=== PATIENT | male | born 1930 | race Caucasian/White ===

== ENCOUNTER 2016-01-17 09:19 | Outpatient (RCR) | payer MEDICARE, OTHER ==
[~2016-01-17 09:19] MED LIST: ADVAIR DISKUS1 DSK IH; COMBIVENT INH14.7 GM IH; COMBIVENT RESPI1 SPR IH; DAILY MULTI VIT1 TAB PO; FEOSOL325 MG PO; FINASTERIDE5 M1 PO; FINASTERIDE5 MG PO; GOOD SENSE ASP325 M1 PO; IRON65 MG PO; MIRALAX PA17 GM/Dose PO; MUCINEX DM 30 M1 TE1 PO; NITROTAB0.4 MG SL; SPIRIVA INH IH; TERAZOSIN HCL2 M1 PO; TERAZOSIN HCL2 M3 PO
[2016-01-17 09:38] VITALS: BP 141/69
[2016-01-17 11:17] VITALS: BP 140/69
[2016-01-19 09:18] VITALS: BP 156/69
[2016-01-19] MEDS ORDERED: PROTONIX 40MG T40 MG PO (09:37)
[2016-01-19 10:40] VITALS: BP 153/63
[2016-01-22 09:42] VITALS: BP 137/57
--- NOTE | 2016-01-22 09:47 | NUR ---
discussed the possibility of pateint leaving this INT in place due to his return monday 01/22 for next infusion, he states he would be interested in doing this, also discussed if he felt necessary to remove it at home to apply direct pressure to the site until the bleeding stopped, plan to secure site with coban prior to dismissal.
[2016-01-22 10:56] VITALS: BP 141/70
--- NOTE | 2016-01-22 10:58 | NUR ---
eugenio decides to maintain INT until Sunday with full knowledge it may still need to be restarted at that time, line is wrapped with Coban and he states it is comfortable, patient refused supplemental oxygen during say here
[2016-01-24 09:25] VITALS: BP 140/78
[2016-01-24 10:55] VITALS: BP 132/62
[2016-01-27 09:45] VITALS: BP 124/51
[2016-01-27 10:55] VITALS: BP 128/28
== END 2016-04-16 | disposition home or self-care (01) ==
LOC: AMSURD
DX: K55.20 Angiodysplasia of colon without hemorrhage (principal); D50.9 Iron deficiency anemia, unspecified
CPT/HCPCS: J1756

== ENCOUNTER → 2016-04-10 | Outpatient (CLI) | payer MEDICARE, OTHER ==
[~2016-04-10] MED LIST changes: +PROTONIX 40MG T40 MG PO
== END ==
LOC: LAB 10:42
DX: K55.21 Angiodysplasia of colon with hemorrhage (principal); J44.9 Chronic obstructive pulmonary disease, unspecified

== ENCOUNTER → 2016-05-02 | Outpatient (CLI) | payer MEDICARE, OTHER | LOC: LAB 08:51 | DX: K55.21 Angiodysplasia of colon with hemorrhage (principal); J44.9 Chronic obstructive pulmonary disease, unspecified ==

== ENCOUNTER 2016-05-05 09:30 | Outpatient (RCR) | payer MEDICARE, OTHER ==
[2016-05-05 10:20] VITALS: BP 129/64
[2016-05-05 10:47] VITALS: BP 141/72
[2016-05-12 09:27] VITALS: BP 148/72
[2016-05-12 09:34] VITALS: BP 148/72
[2016-05-12 10:22] VITALS: BP 133/58
[2016-05-19 09:59] VITALS: BP 131/65
[2016-05-19 10:30] VITALS: BP 135/69
[2016-05-26 09:27] VITALS: BP 121/49
[2016-05-26 10:35] VITALS: BP 129/54
== END 2016-08-03 | disposition home or self-care (01) ==
LOC: AMSURD
DX: K55.20 Angiodysplasia of colon without hemorrhage (principal); D50.9 Iron deficiency anemia, unspecified
CPT/HCPCS: J1756

== ENCOUNTER → 2016-06-20 | Outpatient (CLI) | payer MEDICARE, OTHER ==
[2016-05-26 10:35] VITALS: BP 129/54
== END ==
LOC: LAB 08:16
DX: K55.21 Angiodysplasia of colon with hemorrhage (principal); J44.9 Chronic obstructive pulmonary disease, unspecified

== ENCOUNTER → 2017-02-06 | Outpatient (CLI) | payer MEDICARE, OTHER ==
[2017-02-06 15:56] LABS: HEMATOCRIT 35.1 % (42.0-52.0); HEMOGLOBIN 10.6 g/dL (13.5-18.0); MEAN CELL VOLUME 90 fl (78-100); MEAN CORPUSCULAR HEMOGLOBIN 27 pg (27-31); MEAN CORPUSCULAR HGB CONC 30 g/dL (33-37); MEAN PLATELET VOLUME 10.3 fl (7.4-10.4); PLATELET COUNT 261 K/mm3 (130-400); RED BLOOD COUNT 3.91 M/mm3 (4.20-5.60); RED CELL DISTRIBUTION WIDTH 13.3 % (11.5-14.5); WHITE BLOOD COUNT 10.1 K/mm3 (4.8-10.8)
[2017-02-06 16:04] LABS: ALBUMIN 3.9 g/dL (3.5-5.0); BUN/CREATININE RATIO 33.2 (6.0-26.0); CALCIUM 9.7 mg/dL (8.4-10.2); POTASSIUM 4.2 mmol/L (3.6-5.0); TOTAL BILIRUBIN 0.5 mg/dL (0.2-1.3); TOTAL PROTEIN 7.3 g/dL (6.3-8.2)
[2017-02-06 16:48] LABS: LYMPHOCYTE 2 % (20-51); MONOCYTE 7 % (3-10); NEUTROPHILS 89 % (42-75)
== END ==
LOC: RAD 15:15
PROVIDERS: Family Medicine
DX: D50.0 Iron deficiency anemia secondary to blood loss (chronic) (principal); K21.0 Gastro-esophageal reflux disease with esophagitis

== ENCOUNTER → 2017-06-05 | Outpatient (CLI) | payer MEDICARE, OTHER ==
[2017-06-05 07:54] LABS: MEAN PLATELET VOLUME 10.5 fl (7.4-10.4); RED BLOOD COUNT 2.57 M/mm3 (4.20-5.60); RED CELL DISTRIBUTION WIDTH 18.3 % (11.5-14.5)
[2017-06-05 07:55] LABS: ALBUMIN 2.8 g/dL (3.5-5.0); BUN/CREATININE RATIO 18.7 (6.0-26.0); CALCIUM 8.3 mg/dL (8.4-10.2); HEMATOCRIT 17.8 % (42.0-52.0); HEMOGLOBIN 4.4 g/dL (13.5-18.0); POTASSIUM 4.2 mmol/L (3.6-5.0); TOTAL BILIRUBIN 0.3 mg/dL (0.2-1.3); TOTAL PROTEIN 5.7 g/dL (6.3-8.2); TROPONIN-I < 0.03 ng/mL (0.00-0.06)
[2017-06-05 08:18] LABS: URINE APPEARANCE CLEAR; URINE BILIRUBIN NEGATIVE (NEGATIVE); URINE BLOOD 50 ery/uL (NEGATIVE); URINE COLOR YELLOW; URINE GLUCOSE NEGATIVE (NEGATIVE); URINE KETONE NEGATIVE (NEGATIVE); URINE LEUKOCYTE ESTERASE NEGATIVE (NEGATIVE); URINE NITRATE NEGATIVE (NEGATIVE); URINE PROTEIN(semi-quant) NEGATIVE (NEGATIVE); URINE UROBILINOGEN NORMAL (NORMAL); URINE WBC 0-1 /hpf (0-3)
== END ==
LOC: LAB 06:45
PROVIDERS: Family Medicine
DX: D50.9 Iron deficiency anemia, unspecified (principal); J44.9 Chronic obstructive pulmonary disease, unspecified; R06.02 Shortness of breath; R06.2 Wheezing

== ENCOUNTER → 2017-06-05 | Outpatient (CLI) | payer MEDICARE, OTHER ==
[2017-06-05] VITALS (11 sets, daily range): BP systolic 126–154; BP diastolic 61–89
[~2017-06-05] VITALS: Ht 175.3 cm; Wt 75.0 kg
== END ==
LOC: AMSURD 10:23
DX: D50.9 Iron deficiency anemia, unspecified (principal); K55.20 Angiodysplasia of colon without hemorrhage
CPT/HCPCS: J1940; J7050

== ENCOUNTER → 2017-06-06 | Outpatient (CLI) | payer MEDICARE, OTHER ==
[2017-06-06] VITALS (7 sets, daily range): BP systolic 118–147; BP diastolic 49–76
[~2017-06-06] VITALS: Ht 175.3 cm; Wt 75.0 kg
== END ==
LOC: AMSURD 10:35
DX: D50.9 Iron deficiency anemia, unspecified (principal); K55.20 Angiodysplasia of colon without hemorrhage
CPT/HCPCS: J1940; J7050

== ENCOUNTER → 2017-06-06 | Outpatient (CLI) | payer MEDICARE, OTHER ==
[2017-06-05 15:08] VITALS: BP 148/65
[2017-06-06 07:34] LABS: BUN/CREATININE RATIO 17.7 (6.0-26.0); CALCIUM 8.3 mg/dL (8.4-10.2); HEMATOCRIT 25.1 % (42.0-52.0); HEMOGLOBIN 6.9 g/dL (13.5-18.0); MEAN PLATELET VOLUME 9.9 fl (7.4-10.4); POTASSIUM 4.3 mmol/L (3.6-5.0); RED BLOOD COUNT 3.49 M/mm3 (4.20-5.60); WHITE BLOOD COUNT 4.8 K/mm3 (4.8-10.8)
== END ==
LOC: LAB 06:20
PROVIDERS: Family Medicine
DX: K55.20 Angiodysplasia of colon without hemorrhage (principal); D50.9 Iron deficiency anemia, unspecified

== ENCOUNTER → 2017-06-07 | Outpatient (CLI) | payer MEDICARE, OTHER ==
[2017-06-06 15:05] VITALS: BP 147/76
[2017-06-07 06:08] LABS: HEMATOCRIT 31.6 % (42.0-52.0); HEMOGLOBIN 9.2 g/dL (13.5-18.0); MEAN PLATELET VOLUME 9.8 fl (7.4-10.4); RED BLOOD COUNT 4.21 M/mm3 (4.20-5.60); RED CELL DISTRIBUTION WIDTH 21.2 % (11.5-14.5); WHITE BLOOD COUNT 4.6 K/mm3 (4.8-10.8)
[2017-06-07 06:15] LABS: BUN/CREATININE RATIO 17.6 (6.0-26.0); CALCIUM 8.4 mg/dL (8.4-10.2); POTASSIUM 4.2 mmol/L (3.6-5.0)
== END ==
LOC: LAB 05:38
PROVIDERS: Family Medicine
DX: D50.9 Iron deficiency anemia, unspecified (principal); K55.20 Angiodysplasia of colon without hemorrhage

== ENCOUNTER 2017-06-12 14:07 | Outpatient (RCR) | payer MEDICARE, OTHER ==
[~2017-06-12] VITALS: Ht 175.3 cm; Wt 77.3 kg
[~2017-06-12 14:07] MED LIST changes: -AFRIN 20 ML20 M2 NS; -FLOVENT HFA12 G1 IH; -IPRATROPIUM BROM3 M1 IH; -MIRALAX17 GM PO; -MUCINEX 60600 MG/TA1 PO
[2017-06-12 14:40] VITALS: BP 147/66
--- NOTE | 2017-06-12 15:10 | NUR ---
[facility] reports that pt received benadryl 25mg prior to his arrival at the hospital.
[2017-06-12] MEDS ORDERED: AFRIN 20 ML20 M2 NS (15:12)
[2017-06-12] MEDS ORDERED: COMBIVENT RESPI1 SPR IH (15:13)
[2017-06-12] MEDS ORDERED: IPRATROPIUM BROM3 M1 IH (15:13)
[2017-06-12] MEDS ORDERED: FLOVENT HFA12 G1 IH (15:14)
[2017-06-12] MEDS ORDERED: MIRALAX17 GM PO (15:15)
[2017-06-12] MEDS ORDERED: MUCINEX 60600 MG/TA1 PO (15:18)
[2017-06-12 16:15] VITALS: BP 142/67
--- NOTE | 2017-06-12 16:25 | NUR ---
Ryan Baker notified of new order for Nulecit 250mg q 2 weeks (with labs done morning of scheduled infusion). Order faxed to Ryan Baker and paper copy sent w/ pt as well.
[2017-06-26 14:33] VITALS: BP 116/60
[2017-06-26 15:45] VITALS: BP 136/61
[2017-07-10 14:00] VITALS: BP 136/69
[2017-07-10 15:28] VITALS: BP 147/75
[2017-07-10] MEDS ORDERED: COMBIVENT RESPI1 SPR IH (19:04)
[2017-07-24 14:34] VITALS: BP 120/54
[2017-07-24 15:53] VITALS: BP 134/64
--- NOTE | 2017-07-24 15:55 | NUR ---
patient used facility oxygen at 2l/nc while he was here
[2017-08-08 14:15] VITALS: BP 144/70
[2017-08-08 15:45] VITALS: BP 126/70
[2017-08-22 14:12] VITALS: BP 140/46
[2017-08-22 14:55] VITALS: BP 148/61
[2017-09-05 14:47] VITALS: BP 117/60
[2017-09-05 16:11] VITALS: BP 115/56
== END 2017-09-10 | disposition home or self-care (01) ==
LOC: AMSURD → EDSTATUS 15:57 → AMSURD 08-07 13:51
DX: D50.9 Iron deficiency anemia, unspecified (principal); K55.20 Angiodysplasia of colon without hemorrhage
CPT/HCPCS: J2916; J7050

== ENCOUNTER → 2017-06-12 | Outpatient (CLI) | payer MEDICARE, OTHER ==
[2017-06-06 15:05] VITALS: BP 147/76
[~2017-06-12] MED LIST changes: +AFRIN 20 ML20 M2 NS; +FLOVENT HFA12 G1 IH; +IPRATROPIUM BROM3 M1 IH; +MIRALAX17 GM PO; +MUCINEX 60600 MG/TA1 PO
[2017-06-12 07:12] LABS: HEMATOCRIT 35.9 % (42.0-52.0); MEAN PLATELET VOLUME 11.2 fl (7.4-10.4); RED BLOOD COUNT 4.51 M/mm3 (4.20-5.60); WHITE BLOOD COUNT 5.3 K/mm3 (4.8-10.8)
[2017-06-12 07:22] LABS: RED CELL DISTRIBUTION WIDTH 25.9 % (11.5-14.5)
== END ==
LOC: LAB 06:20
PROVIDERS: Family Medicine
DX: D50.9 Iron deficiency anemia, unspecified (principal)

== ENCOUNTER → 2017-06-26 | Outpatient (CLI) | payer MEDICARE, OTHER ==
[2017-06-12 16:15] VITALS: BP 142/67
[~2017-06-26] MED LIST changes: +AFRIN 20 ML20 M2 NS; +FLOVENT HFA12 G1 IH; +IPRATROPIUM BROM3 M1 IH; +MIRALAX17 GM PO; +MUCINEX 60600 MG/TA1 PO
== END ==
LOC: LAB 13:53
DX: D50.9 Iron deficiency anemia, unspecified (principal)

== ENCOUNTER → 2017-06-26 | Outpatient (CLI) | payer MEDICARE, OTHER ==
[2017-06-12 16:15] VITALS: BP 142/67
[2017-06-26 07:28] LABS: HEMATOCRIT 34.5 % (42.0-52.0); HEMOGLOBIN 9.8 g/dL (13.5-18.0); MEAN PLATELET VOLUME 10.8 fl (7.4-10.4); RED BLOOD COUNT 4.19 M/mm3 (4.20-5.60); WHITE BLOOD COUNT 5.2 K/mm3 (4.8-10.8)
[2017-06-26 07:31] LABS: RED CELL DISTRIBUTION WIDTH 26.1 % (11.5-14.5)
== END ==
LOC: LAB 06:20
PROVIDERS: Family Medicine
DX: D50.9 Iron deficiency anemia, unspecified (principal)

== ENCOUNTER → 2017-07-10 | Outpatient (CLI) | payer MEDICARE, OTHER ==
[2017-06-26 15:45] VITALS: BP 136/61
[2017-07-10 15:54] LABS: HEMOGLOBIN 10.2 g/dL (13.5-18.0); RED BLOOD COUNT 4.03 M/mm3 (4.20-5.60); WHITE BLOOD COUNT 7.2 K/mm3 (4.8-10.8)
== END ==
LOC: LAB 14:40
PROVIDERS: Family Medicine
DX: D50.9 Iron deficiency anemia, unspecified (principal); K55.20 Angiodysplasia of colon without hemorrhage; Z88.8 Allergy status to other drugs, medicaments and biological substances

== ENCOUNTER → 2017-07-24 | Outpatient (CLI) | payer MEDICARE, OTHER ==
[2017-07-10 15:28] VITALS: BP 147/75
[2017-07-24 14:21] LABS: HEMATOCRIT 33.6 % (42.0-52.0); HEMOGLOBIN 10.1 g/dL (13.5-18.0); MEAN PLATELET VOLUME 9.9 fl (7.4-10.4); RED BLOOD COUNT 3.84 M/mm3 (4.20-5.60); RED CELL DISTRIBUTION WIDTH 21.1 % (11.5-14.5); WHITE BLOOD COUNT 7.3 K/mm3 (4.8-10.8)
--- NOTE | 2017-07-24 14:44 | NUR ---
labs drawn at time of IV start, specs to lab with results to go to Dr. Pool
== END ==
LOC: LAB 13:27
PROVIDERS: Family Medicine
DX: D50.9 Iron deficiency anemia, unspecified (principal); K55.20 Angiodysplasia of colon without hemorrhage

== ENCOUNTER → 2017-08-08 | Outpatient (CLI) | payer MEDICARE, OTHER ==
[2017-07-24 15:53] VITALS: BP 134/64
[2017-08-08 14:51] LABS: HEMATOCRIT 35.3 % (42.0-52.0); MEAN PLATELET VOLUME 10.1 fl (7.4-10.4); RED BLOOD COUNT 3.94 M/mm3 (4.20-5.60); RED CELL DISTRIBUTION WIDTH 16.6 % (11.5-14.5); WHITE BLOOD COUNT 6.7 K/mm3 (4.8-10.8)
== END ==
LOC: LAB 14:36
PROVIDERS: Family Medicine
DX: D64.9 Anemia, unspecified (principal)

== ENCOUNTER → 2017-08-22 | Outpatient (CLI) | payer MEDICARE, OTHER ==
[2017-08-08 15:45] VITALS: BP 126/70
[2017-08-22 13:56] LABS: HEMATOCRIT 38.3 % (42.0-52.0); HEMOGLOBIN 12.2 g/dL (13.5-18.0); RED BLOOD COUNT 4.29 M/mm3 (4.20-5.60); RED CELL DISTRIBUTION WIDTH 14.9 % (11.5-14.5); WHITE BLOOD COUNT 7.1 K/mm3 (4.8-10.8)
== END ==
LOC: LAB 13:30
PROVIDERS: Family Medicine
DX: D50.9 Iron deficiency anemia, unspecified (principal); K55.20 Angiodysplasia of colon without hemorrhage

== ENCOUNTER → 2017-09-05 | Outpatient (CLI) | payer MEDICARE, OTHER ==
[2017-08-22 14:55] VITALS: BP 148/61
[2017-09-05 15:16] LABS: HEMATOCRIT 38.1 % (42.0-52.0); HEMOGLOBIN 11.9 g/dL (13.5-18.0); MEAN PLATELET VOLUME 10.3 fl (7.4-10.4); RED BLOOD COUNT 4.18 M/mm3 (4.20-5.60); RED CELL DISTRIBUTION WIDTH 14.2 % (11.5-14.5); WHITE BLOOD COUNT 7.1 K/mm3 (4.8-10.8)
== END ==
LOC: LAB 14:48
PROVIDERS: Family Medicine
DX: D50.9 Iron deficiency anemia, unspecified (principal); D12.6 Benign neoplasm of colon, unspecified

== ENCOUNTER 2017-09-19 12:49 | Outpatient (RCR) | payer MEDICARE, OTHER ==
[~2017-09-19] VITALS: Ht 175.3 cm; Wt 77.3 kg
[2017-09-19 14:04] VITALS: BP 15/63
[2017-09-19 14:22] VITALS: BP 142/64
[2017-10-09 14:18] VITALS: BP 171/76
[2017-10-09 16:11] VITALS: BP 123/69
[2017-10-23 14:36] VITALS: BP 150/68
[2017-10-23 15:54] VITALS: BP 132/64
[2017-11-07 15:54] VITALS: BP 136/65; BP 156/68
[2017-11-28 14:15] VITALS: BP 133/63
[2017-11-28 15:57] VITALS: BP 138/70
[2017-12-19] MEDS ORDERED: BENADRYL PO (18:32)
[2017-12-19] MEDS ORDERED: ANORO ELLIPTA1 POW IH (18:33)
[2017-12-19] MEDS ORDERED: PROMETH-CODEIN 65 ML PO (18:34)
== END 2017-12-18 | disposition home or self-care (01) ==
LOC: AMSURD
DX: D50.9 Iron deficiency anemia, unspecified (principal); K55.20 Angiodysplasia of colon without hemorrhage
CPT/HCPCS: J2916; J7050

== ENCOUNTER → 2017-09-19 | Outpatient (CLI) | payer MEDICARE, OTHER ==
[2017-09-05 16:11] VITALS: BP 115/56
[2017-09-19 14:15] LABS: HEMATOCRIT 39.3 % (42.0-52.0); HEMOGLOBIN 12.5 g/dL (13.5-18.0); MEAN PLATELET VOLUME 11.3 fl (7.4-10.4); RED BLOOD COUNT 4.29 M/mm3 (4.20-5.60); RED CELL DISTRIBUTION WIDTH 13.5 % (11.5-14.5); WHITE BLOOD COUNT 6.8 K/mm3 (4.8-10.8)
== END ==
LOC: LAB 12:51
PROVIDERS: Family Medicine
DX: D50.8 Other iron deficiency anemias (principal); D64.9 Anemia, unspecified; K55.20 Angiodysplasia of colon without hemorrhage

== ENCOUNTER → 2017-10-09 | Outpatient (CLI) | payer MEDICARE, OTHER ==
[2017-09-19 14:22] VITALS: BP 142/64
[2017-10-09 14:21] LABS: HEMATOCRIT 40.4 % (42.0-52.0); HEMOGLOBIN 12.7 g/dL (13.5-18.0); MEAN CELL VOLUME 93 fl (78-100); MEAN CORPUSCULAR HEMOGLOBIN 29 pg (27-31); MEAN CORPUSCULAR HGB CONC 31 g/dL (33-37); MEAN PLATELET VOLUME 10.7 fl (7.4-10.4); PLATELET COUNT 206 K/mm3 (130-400); RED BLOOD COUNT 4.35 M/mm3 (4.20-5.60); RED CELL DISTRIBUTION WIDTH 13.4 % (11.5-14.5); WHITE BLOOD COUNT 7.8 K/mm3 (4.8-10.8)
[2017-10-09 14:25] LABS: ALBUMIN 3.8 g/dL (3.5-5.0); BUN/CREATININE RATIO 29.5 (6.0-26.0); POTASSIUM 4.7 mmol/L (3.6-5.0); TOTAL BILIRUBIN 0.4 mg/dL (0.2-1.3); TOTAL PROTEIN 7.4 g/dL (6.3-8.2)
[2017-10-09 14:32] LABS: TROPONIN-I < 0.03 ng/mL (0.00-0.06)
[2017-10-09 14:35] LABS: LYMPHOCYTE 9 % (20-51); MONOCYTE 5 % (3-10); NEUTROPHILS 84 % (42-75)
== END ==
LOC: RAD 13:23
PROVIDERS: Family Medicine
DX: J43.8 Other emphysema (principal); R91.8 Other nonspecific abnormal finding of lung field

== ENCOUNTER → 2017-10-23 | Outpatient (CLI) | payer MEDICARE, OTHER ==
[2017-10-23 14:36] VITALS: BP 150/68
[2017-10-23 15:55] LABS: HEMATOCRIT 38.8 % (42.0-52.0); HEMOGLOBIN 12.3 g/dL (13.5-18.0); MEAN PLATELET VOLUME 11.2 fl (7.4-10.4); RED BLOOD COUNT 4.14 M/mm3 (4.20-5.60); RED CELL DISTRIBUTION WIDTH 13.6 % (11.5-14.5); WHITE BLOOD COUNT 7.2 K/mm3 (4.8-10.8)
== END ==
LOC: LAB 14:41
PROVIDERS: Family Medicine
DX: D50.9 Iron deficiency anemia, unspecified (principal); K55.20 Angiodysplasia of colon without hemorrhage

== ENCOUNTER → 2017-11-07 | Outpatient (CLI) | payer MEDICARE, OTHER ==
[2017-10-23 15:54] VITALS: BP 132/64
[2017-11-07 14:46] LABS: HEMOGLOBIN 12.6 g/dL (13.5-18.0); MEAN CELL VOLUME 95 fl (78-100); MEAN CORPUSCULAR HEMOGLOBIN 30 pg (27-31); MEAN CORPUSCULAR HGB CONC 32 g/dL (33-37); MEAN PLATELET VOLUME 10.6 fl (7.4-10.4); PLATELET COUNT 215 K/mm3 (130-400); RED BLOOD COUNT 4.23 M/mm3 (4.20-5.60); RED CELL DISTRIBUTION WIDTH 13.7 % (11.5-14.5); WHITE BLOOD COUNT 7.6 K/mm3 (4.8-10.8)
[2017-11-07 14:59] LABS: LYMPHOCYTE 4 % (20-51); MONOCYTE 6 % (3-10); NEUTROPHILS 86 % (42-75)
== END ==
LOC: LAB 14:09
PROVIDERS: Family Medicine
DX: D64.9 Anemia, unspecified (principal); D50.9 Iron deficiency anemia, unspecified

== ENCOUNTER → 2017-11-28 | Outpatient (CLI) | payer MEDICARE, OTHER ==
[2017-11-07 15:54] VITALS: BP 136/65
[2017-11-28 15:24] LABS: HEMATOCRIT 41.6 % (42.0-52.0); HEMOGLOBIN 13.4 g/dL (13.5-18.0); MEAN CELL VOLUME 95 fl (78-100); MEAN CORPUSCULAR HEMOGLOBIN 31 pg (27-31); MEAN CORPUSCULAR HGB CONC 32 g/dL (33-37); MEAN PLATELET VOLUME 10.5 fl (7.4-10.4); PLATELET COUNT 193 K/mm3 (130-400); RED BLOOD COUNT 4.38 M/mm3 (4.20-5.60); WHITE BLOOD COUNT 9.9 K/mm3 (4.8-10.8)
[2017-11-28 15:56] LABS: LYMPHOCYTE 6 % (20-51); MONOCYTE 6 % (3-10); NEUTROPHILS 86 % (42-75)
== END ==
LOC: LAB 14:24
PROVIDERS: Family Medicine
DX: D50.9 Iron deficiency anemia, unspecified (principal); D64.9 Anemia, unspecified

== ENCOUNTER → 2017-12-19 | Outpatient (CLI) | payer MEDICARE, OTHER ==
[2017-11-28 15:57] VITALS: BP 138/70
[~2017-12-19] MED LIST changes: +ANORO ELLIPTA1 POW IH; +BENADRYL PO; +PROMETH-CODEIN 65 ML PO
[2017-12-19 15:37] LABS: HEMATOCRIT 34.7 % (42.0-52.0); HEMOGLOBIN 11.2 g/dL (13.5-18.0); MEAN CELL VOLUME 94 fl (78-100); MEAN CORPUSCULAR HEMOGLOBIN 30 pg (27-31); MEAN CORPUSCULAR HGB CONC 32 g/dL (33-37); MEAN PLATELET VOLUME 10.1 fl (7.4-10.4); PLATELET COUNT 258 K/mm3 (130-400); RED CELL DISTRIBUTION WIDTH 13.5 % (11.5-14.5); WHITE BLOOD COUNT 7.6 K/mm3 (4.8-10.8)
[2017-12-19 16:54] LABS: NEUTROPHILS 80 % (42-75)
[2017-12-19 16:55] LABS: LYMPHOCYTE 12 % (20-51); MONOCYTE 5 % (3-10)
== END ==
LOC: LAB 14:48
PROVIDERS: Family Medicine
DX: D64.9 Anemia, unspecified (principal); D50.9 Iron deficiency anemia, unspecified

== ENCOUNTER → 2018-01-09 | Outpatient (CLI) | payer MEDICARE, OTHER, MEDICAID ==
[2017-12-19 15:49] VITALS: BP 120/64
[2018-01-09 14:27] LABS: HEMATOCRIT 38.9 % (42.0-52.0); HEMOGLOBIN 12.4 g/dL (13.5-18.0); MEAN PLATELET VOLUME 10.4 fl (7.4-10.4); RED BLOOD COUNT 4.12 M/mm3 (4.20-5.60); RED CELL DISTRIBUTION WIDTH 14.1 % (11.5-14.5); WHITE BLOOD COUNT 7.9 K/mm3 (4.8-10.8)
== END ==
LOC: LAB 13:54
PROVIDERS: Family Medicine
DX: D50.9 Iron deficiency anemia, unspecified (principal); K55.20 Angiodysplasia of colon without hemorrhage

== ENCOUNTER → 2018-01-30 | Outpatient (CLI) | payer MEDICARE, OTHER, MEDICAID ==
[2018-01-09 14:50] VITALS: BP 162/87
[2018-01-30 15:20] LABS: HEMATOCRIT 38.4 % (42.0-52.0); HEMOGLOBIN 12.2 g/dL (13.5-18.0); MEAN PLATELET VOLUME 10.9 fl (7.4-10.4); RED BLOOD COUNT 4.03 M/mm3 (4.20-5.60); RED CELL DISTRIBUTION WIDTH 13.7 % (11.5-14.5); WHITE BLOOD COUNT 8.4 K/mm3 (4.8-10.8)
== END ==
LOC: LAB 14:35
PROVIDERS: Family Medicine
DX: D50.9 Iron deficiency anemia, unspecified (principal); K55.20 Angiodysplasia of colon without hemorrhage

== ENCOUNTER 2018-02-27 13:45 | Outpatient (RCR) | payer MEDICARE, OTHER ==
[2017-12-19 14:15] VITALS: BP 115/64
[2017-12-19 15:49] VITALS: BP 120/64
[2018-01-09 14:10] VITALS: BP 156/79; BP 162/87
[2018-01-09 14:50] VITALS: BP 162/87
[2018-01-30 14:10] VITALS: BP 151/71
[2018-01-30 16:07] VITALS: BP 155/76
[~2018-02-27] VITALS: Ht 175.3 cm; Wt 74.5 kg
[~2018-02-27 13:45] MED LIST changes: -AFRIN PUMPMIST15 ML NS; -ALBUTEROL2.5 MG/3 M IH
[2018-02-27 14:00] VITALS: BP 119/59
[2018-02-27] MEDS ORDERED: AFRIN PUMPMIST15 ML NS (15:00)
[2018-02-27] MEDS ORDERED: ALBUTEROL2.5 MG/3 M IH (15:01)
[2018-02-27 15:48] VITALS: BP 110/45
== END 2018-03-19 | disposition home or self-care (01) ==
LOC: AMSURD
DX: D50.9 Iron deficiency anemia, unspecified (principal); K55.20 Angiodysplasia of colon without hemorrhage
CPT/HCPCS: J2916; J7050

== ENCOUNTER → 2018-02-27 | Outpatient (CLI) | payer MEDICARE, OTHER, MEDICAID ==
[2018-01-30 16:07] VITALS: BP 155/76
[~2018-02-27] MED LIST changes: +AFRIN PUMPMIST15 ML NS; +ALBUTEROL2.5 MG/3 M IH
[2018-02-27 14:19] LABS: HEMATOCRIT 29.9 % (42.0-52.0); HEMOGLOBIN 9.6 g/dL (13.5-18.0); MEAN CELL VOLUME 97 fl (78-100); MEAN CORPUSCULAR HEMOGLOBIN 31 pg (27-31); MEAN CORPUSCULAR HGB CONC 32 g/dL (33-37); MEAN PLATELET VOLUME 10.2 fl (7.4-10.4); PLATELET COUNT 169 K/mm3 (130-400); RED BLOOD COUNT 3.09 M/mm3 (4.20-5.60); RED CELL DISTRIBUTION WIDTH 15.5 % (11.5-14.5); WHITE BLOOD COUNT 13.9 K/mm3 (4.8-10.8)
[2018-02-27 15:18] LABS: NEUTROPHILS 98 % (42-75)
[2018-02-27 15:19] LABS: LYMPHOCYTE 1 % (20-51); MONOCYTE 1 % (3-10); POLYCHROMASIA 2+
== END ==
LOC: LAB 13:59
PROVIDERS: Family Medicine
DX: D50.9 Iron deficiency anemia, unspecified (principal); D64.9 Anemia, unspecified

== ENCOUNTER → 2018-03-20 | Outpatient (CLI) | payer MEDICARE, OTHER, MEDICAID ==
[2018-02-27 15:48] VITALS: BP 110/45
[~2018-03-20] MED LIST changes: +AFRIN PUMPMIST15 ML NS; +ALBUTEROL2.5 MG/3 M IH
[2018-03-20 14:58] LABS: HEMATOCRIT 30.4 % (42.0-52.0); HEMOGLOBIN 8.8 g/dL (13.5-18.0); MEAN PLATELET VOLUME 9.2 fl (7.4-10.4); RED BLOOD COUNT 2.9 M/mm3 (4.20-5.60); RED CELL DISTRIBUTION WIDTH 16.3 % (11.5-14.5); WHITE BLOOD COUNT 4.6 K/mm3 (4.8-10.8)
== END ==
LOC: LAB 14:23
PROVIDERS: Family Medicine
DX: K55.20 Angiodysplasia of colon without hemorrhage (principal); D63.8 Anemia in other chronic diseases classified elsewhere

== ENCOUNTER → 2018-04-10 | Outpatient (CLI) | payer MEDICARE, OTHER, MEDICAID ==
[2018-04-10 14:13] VITALS: BP 132/58
[2018-04-10 15:30] LABS: HEMATOCRIT 28.8 % (42.0-52.0); HEMOGLOBIN 8.9 g/dL (13.5-18.0); MEAN PLATELET VOLUME 10.3 fl (7.4-10.4); RED BLOOD COUNT 2.99 M/mm3 (4.20-5.60); RED CELL DISTRIBUTION WIDTH 14.2 % (11.5-14.5); WHITE BLOOD COUNT 3.9 K/mm3 (4.8-10.8)
== END ==
LOC: LAB 14:15
PROVIDERS: Family Medicine
DX: K55.20 Angiodysplasia of colon without hemorrhage (principal); D50.9 Iron deficiency anemia, unspecified

== ENCOUNTER 2018-04-18 16:10 | Inpatient (IN) | payer MEDICARE, OTHER, MEDICAID ==
[~2018-04-18] VITALS: Ht 175.3 cm; Wt 83.2 kg
[2018-04-18] VITALS (8 sets, daily range): BP systolic 111–139; BP diastolic 47–64
[2018-04-18] MEDS ORDERED: AFRIN 20 ML20 M2 NS (19:09)
[2018-04-18] MEDS ORDERED: ALBUTEROL SULFAT3 M3 IH (19:10)
[2018-04-18] MEDS ORDERED: PACERONE200 MG PO (19:10)
[2018-04-18] MEDS ORDERED: DILT-XR180 MG PO (19:11)
[2018-04-18] MEDS ORDERED: BENADRYL25 M2 PO (19:11)
[2018-04-18] MEDS ORDERED: MIRALAX17 GM PO (19:12)
[2018-04-18] MEDS ORDERED: ELIQUIS5 MG PO (19:12)
[2018-04-18] MEDS ORDERED: TERAZOSIN HCL2 M3 PO (19:13)
[2018-04-18] MEDS ORDERED: PROAIR HFA0.09 MG/AC IH (19:13)
[2018-04-18 19:56] LABS: PH-URINE 5.5 (5.0 - 8.0); URINE APPEARANCE CLEAR; URINE BILIRUBIN NEGATIVE (NEGATIVE); URINE BLOOD NEGATIVE (NEGATIVE); URINE COLOR YELLOW; URINE GLUCOSE NEGATIVE (NEGATIVE); URINE KETONE NEGATIVE (NEGATIVE); URINE LEUKOCYTE ESTERASE NEGATIVE (NEGATIVE); URINE MUCUS PRESENT (NOT PRESENT); URINE NITRATE NEGATIVE (NEGATIVE); URINE PROTEIN(semi-quant) NEGATIVE (NEGATIVE); URINE UROBILINOGEN NORMAL (NORMAL); URINE WBC 0-1 /hpf (0-3)
[2018-04-19] VITALS (15 sets, daily range): BP systolic 110–138; BP diastolic 60–71
[2018-04-19 06:50] LABS: HEMOGLOBIN 11.2 g/dL (13.5-18.0); MEAN CELL VOLUME 93 fl (78-100); MEAN CORPUSCULAR HEMOGLOBIN 29 pg (27-31); MEAN CORPUSCULAR HGB CONC 31 g/dL (33-37); MEAN PLATELET VOLUME 9.7 fl (7.4-10.4); PLATELET COUNT 289 K/mm3 (130-400); RED BLOOD COUNT 3.86 M/mm3 (4.20-5.60); RED CELL DISTRIBUTION WIDTH 15.2 % (11.5-14.5); WHITE BLOOD COUNT 4.5 K/mm3 (4.8-10.8)
[2018-04-19 07:24] LABS: CALCIUM 8.6 mg/dL (8.4-10.2); POTASSIUM 3.9 mmol/L (3.6-5.0)
[2018-04-19 07:25] LABS: BAND 1 % (0-10); LYMPHOCYTE 2 % (20-51); NEUTROPHILS 97 % (42-75); OVALOCYTES 1+; POLYCHROMASIA 1+
[2018-04-20 03:44] VITALS: BP 118/62
[2018-04-20 06:31] VITALS: BP 115/65
[2018-04-20 11:11] VITALS: BP 112/65
[2018-04-20 15:15] VITALS: BP 120/60
[2018-04-20 18:30] VITALS: BP 117/53
[2018-04-20 22:48] VITALS: BP 103/56
[2018-04-21 03:22] VITALS: BP 137/59
[2018-04-21 06:13] VITALS: BP 122/65
[2018-04-21 08:21] LABS: POTASSIUM 3.8 mmol/L (3.6-5.0)
[2018-04-21 08:41] LABS: HEMATOCRIT 34.5 % (42.0-52.0); HEMOGLOBIN 10.6 g/dL (13.5-18.0); MEAN CELL VOLUME 94 fl (78-100); MEAN CORPUSCULAR HEMOGLOBIN 29 pg (27-31); MEAN CORPUSCULAR HGB CONC 31 g/dL (33-37); MEAN PLATELET VOLUME 10.3 fl (7.4-10.4); PLATELET COUNT 304 K/mm3 (130-400); RED BLOOD COUNT 3.69 M/mm3 (4.20-5.60); RED CELL DISTRIBUTION WIDTH 15.2 % (11.5-14.5); WHITE BLOOD COUNT 8.5 K/mm3 (4.8-10.8)
[2018-04-21 09:05] LABS: LYMPHOCYTE 2 % (20-51); MONOCYTE 2 % (3-10); NEUTROPHILS 96 % (42-75)
[2018-04-21 11:06] VITALS: BP 123/62
[2018-04-21 15:03] VITALS: BP 134/56
[2018-04-21 18:14] VITALS: BP 134/58
[2018-04-21 23:10] VITALS: BP 117/55
[2018-04-22 03:25] VITALS: BP 117/58
[2018-04-22 06:09] VITALS: BP 117/59
[2018-04-22 11:00] VITALS: BP 128/69
[2018-04-22 12:02] LABS: HEMATOCRIT 35.8 % (42.0-52.0); HEMOGLOBIN 10.6 g/dL (13.5-18.0); MEAN CELL VOLUME 95 fl (78-100); MEAN CORPUSCULAR HEMOGLOBIN 28 pg (27-31); MEAN CORPUSCULAR HGB CONC 30 g/dL (33-37); MEAN PLATELET VOLUME 10.4 fl (7.4-10.4); PLATELET COUNT 294 K/mm3 (130-400); RED BLOOD COUNT 3.76 M/mm3 (4.20-5.60); RED CELL DISTRIBUTION WIDTH 15.3 % (11.5-14.5); WHITE BLOOD COUNT 9.1 K/mm3 (4.8-10.8)
[2018-04-22 12:14] LABS: ALBUMIN 3.3 g/dL (3.5-5.0); CALCIUM 8.7 mg/dL (8.4-10.2); POTASSIUM 3.9 mmol/L (3.6-5.0); TOTAL BILIRUBIN 0.4 mg/dL (0.2-1.3); TOTAL PROTEIN 5.8 g/dL (6.3-8.2)
[2018-04-22 12:21] LABS: BAND 3 % (0-10); LYMPHOCYTE 3 % (20-51); MONOCYTE 2 % (3-10); NEUTROPHILS 92 % (42-75)
[2018-04-22 15:00] VITALS: BP 131/56
[2018-04-22 18:57] VITALS: BP 117/57
[2018-04-22 23:21] VITALS: BP 125/67
[2018-04-23 03:24] VITALS: BP 119/59
[2018-04-23 06:23] VITALS: BP 127/68
[2018-04-23 10:51] VITALS: BP 129/70
[2018-04-23] MEDS ORDERED: ALPRAZOLAM0.5 MG PO (11:11)
[2018-04-23] MEDS ORDERED: CIPRO 500MG TA500 MG PO (11:11)
[2018-04-23] MEDS ORDERED: FUROSEMIDE20 MG PO (11:11)
[2018-04-23] MEDS ORDERED: PREDNISONE20 MG PO (11:27)
[2018-04-23 13:57] VITALS: BP 129/70
== END 2018-04-23 13:17 | DRG 178 ==
LOC: MED/SURG 16:10
PROVIDERS: Family Medicine; ADMIT Physician Assistant
DX: J15.1 Pneumonia due to Pseudomonas (principal); J44.0 Chronic obstructive pulmonary disease with (acute) lower respiratory infection; J44.1 Chronic obstructive pulmonary disease with (acute) exacerbation; Z66 Do not resuscitate; I48.0 Paroxysmal atrial fibrillation; Z87.891 Personal history of nicotine dependence; D50.9 Iron deficiency anemia, unspecified; Z79.01 Long term (current) use of anticoagulants; J30.9 Allergic rhinitis, unspecified
CPT/HCPCS: A4216; J0456; J0696; J2930; J7050; P9016; Q9967

== ENCOUNTER → 2018-05-02 | Outpatient (CLI) | payer MEDICARE, OTHER, MEDICAID ==
[2018-04-23 13:57] VITALS: BP 129/70
[~2018-05-02] MED LIST changes: +ALBUTEROL SULFAT3 M3 IH; +ALPRAZOLAM0.5 MG PO; +BENADRYL25 M2 PO; +CIPRO 500MG TA500 MG PO; +DILT-XR180 MG PO; +ELIQUIS5 MG PO; -FINASTERIDE5 MG PO; +FUROSEMIDE20 MG PO; +PACERONE200 MG PO; +PREDNISONE20 MG PO; +PROAIR HFA0.09 MG/AC IH
[2018-05-02 16:21] LABS: HEMATOCRIT 33.4 % (42.0-52.0); HEMOGLOBIN 10.1 g/dL (13.5-18.0); MEAN PLATELET VOLUME 11.2 fl (7.4-10.4); RED BLOOD COUNT 3.55 M/mm3 (4.20-5.60); RED CELL DISTRIBUTION WIDTH 16.5 % (11.5-14.5); WHITE BLOOD COUNT 14.8 K/mm3 (4.8-10.8)
== END ==
LOC: LAB 15:40
PROVIDERS: Family Medicine
DX: K55.20 Angiodysplasia of colon without hemorrhage (principal); D63.8 Anemia in other chronic diseases classified elsewhere

== ENCOUNTER 2018-05-23 12:01 | Inpatient (IN) | payer MEDICARE, OTHER, MEDICAID ==
[2018-05-23] VITALS (24 sets, daily range): BP systolic 92–138; BP diastolic 42–60
[~2018-05-23] VITALS: Ht 175.3 cm; Wt 79.7 kg
[~2018-05-23 12:01] MED LIST changes: -LASIX20 M1 PO
--- NOTE | 2018-05-23 12:20 | NUR ---
Patient was here for outpatient iron infusion but with labs drawn this am noted Hgb 6.3. Lab notified EFREN Garcia who decided to admit patient for blood transfusion and weakness. Patient does admit he fell this morning at home due to being so weak. Radha gave report to Romana SCHWARTZ and is now being admitted acute. Patient is currently oxygen dependent on 3L NC and has own tank and his own wheelchair. Patient transferred from outpatient room to inpatient room and placed on oxygen in the room at 3L NC. Patient is alert and oriented. Patient verbalizes understanding of low hemoglobin and called his to let her know he will be staying the night in the hospital. Patient moved to room without incident.
[2018-05-23] MEDS ORDERED: MIRALAX17 GM PO (17:14)
[2018-05-23] MEDS ORDERED: TERAZOSIN HCL2 M3 PO (17:15)
[2018-05-23] MEDS ORDERED: LASIX20 M1 PO (17:17)
[2018-05-23 20:17] LABS: PH-URINE 5.5 (5.0 - 8.0); URINE APPEARANCE CLEAR; URINE COLOR YELLOW; URINE GLUCOSE NEGATIVE (NEGATIVE); URINE PROTEIN(semi-quant) TRACE mg/dL (NEGATIVE)
[2018-05-23 20:18] LABS: URINE BILIRUBIN NEGATIVE (NEGATIVE); URINE BLOOD NEGATIVE (NEGATIVE); URINE KETONE NEGATIVE (NEGATIVE); URINE LEUKOCYTE ESTERASE NEGATIVE (NEGATIVE); URINE NITRATE NEGATIVE (NEGATIVE); URINE UROBILINOGEN NORMAL (NORMAL); URINE WBC 0-1 /hpf (0-3)
[2018-05-23 21:16] LABS: HEMATOCRIT 28.7 % (42.0-52.0); HEMOGLOBIN 8.3 g/dL (13.5-18.0)
[2018-05-23 21:24] LABS: ALBUMIN 2.9 g/dL (3.5-5.0); POTASSIUM 4.1 mmol/L (3.6-5.0); TOTAL BILIRUBIN 0.6 mg/dL (0.2-1.3); TOTAL PROTEIN 5.4 g/dL (6.3-8.2)
--- NOTE | 2018-05-24 01:15 | NUR ---
[facility] STAFF REPORT URINARY RETENTION AND URINARY FREQUENCY FROM PATIENT. BASED ON PATIENT'S H&P, HE HAS A SIGNIFICANT HISTORY OF URINARY RETENTION AND IS ON PROSCAR. PATIENT IS NOT SYMPTOMATIC BUT URINATES 50-150 CC'S OF URINE EACH TIME. CONTINUED MONITORING IMPLEMENTED.
--- NOTE | 2018-05-24 03:33 | NUR ---
MIKE GUTIERREZ REPORTS A SKIN TEAR TO PATIENT NEAR HIS IV SITE. A 1 INCH SKIN TRIANGLE SHAPED SKIN TEAR OBSERVED TO RIGHT FOREARM, RIGHT AT THE END OF A PIECE OF TAPE HOLDING IV TUBING IN PLACE. SITE CLEANSED AND STERI-STRIPS APPLIED. EDGES WELL APPROXIMATED. LARGE BANDAID APPLIED. NO ACTIVE BLEEDING AND PATIENT REPORTS IT "SMARTS" BUT IS BETTER AFTER BEING COVERED. IV TUBING MOVED AND RE-SECURED WITH SOME SLACK PATIENT REPORTS HE MOVED IN BED AND FELT THE IV TUBING PULL HE HAD BEEN WRAPPED UP IN IT.
[2018-05-24 03:43] VITALS: BP 130/58
[2018-05-24 06:10] VITALS: BP 132/60
[2018-05-24 07:54] LABS: HEMATOCRIT 29.8 % (42.0-52.0); HEMOGLOBIN 8.6 g/dL (13.5-18.0); MEAN CELL VOLUME 96 fl (78-100); MEAN CORPUSCULAR HEMOGLOBIN 28 pg (27-31); MEAN CORPUSCULAR HGB CONC 29 g/dL (33-37); MEAN PLATELET VOLUME 9.2 fl (7.4-10.4); PLATELET COUNT 245 K/mm3 (130-400); RED BLOOD COUNT 3.09 M/mm3 (4.20-5.60); RED CELL DISTRIBUTION WIDTH 18.6 % (11.5-14.5); WHITE BLOOD COUNT 4.7 K/mm3 (4.8-10.8)
[2018-05-24 08:14] LABS: LYMPHOCYTE 11 % (20-51); MICROCYTOSIS 1+; MONOCYTE 5 % (3-10); NEUTROPHILS 82 % (42-75); POLYCHROMASIA 1+; TEAR DROP CELLS 1+
[2018-05-24 08:15] LABS: HYPOCHROMIA 1+
[2018-05-24 09:44] VITALS: BP 132/60
[2018-05-24 10:56] VITALS: BP 98/53
--- NOTE | 2018-05-24 11:07 | NUR ---
Called report to nurseSarah. Faxed all ppw to [facility].
--- NOTE | 2018-05-24 11:28 | NUR ---
Assisted pt to dress in own clothing and gather all belongings. Pt stands and transfers to own WC, applies own O2 tubing, has [employer] turn O2 tank to 2L via NC. Pt requests to use own ProAir inhaler after all activity completed. [facility] [employer] escorts pt from facility via WC back to [facility].
== END 2018-05-24 11:28 | DRG 812 ==
LOC: MED/SURG 12:01
PROVIDERS: Nurse Practitioner Family; ADMIT Nurse Practitioner Primary Care
DX: D50.9 Iron deficiency anemia, unspecified (principal); J44.9 Chronic obstructive pulmonary disease, unspecified; I48.0 Paroxysmal atrial fibrillation; Z79.01 Long term (current) use of anticoagulants; K21.9 Gastro-esophageal reflux disease without esophagitis; N40.0 Benign prostatic hyperplasia without lower urinary tract symptoms; F17.210 Nicotine dependence, cigarettes, uncomplicated; R60.1 Generalized edema
CPT/HCPCS: C9113; J1940; J7120

== ENCOUNTER → 2018-05-23 | Outpatient (CLI) | payer MEDICARE, OTHER, MEDICAID ==
[2018-05-02 17:33] VITALS: BP 136/74
[~2018-05-23] MED LIST changes: +LASIX20 M1 PO
[2018-05-23 11:10] LABS: MEAN PLATELET VOLUME 9.3 fl (7.4-10.4); RED BLOOD COUNT 2.33 M/mm3 (4.20-5.60); RED CELL DISTRIBUTION WIDTH 18.2 % (11.5-14.5); WHITE BLOOD COUNT 5.7 K/mm3 (4.8-10.8)
[2018-05-23 12:06] LABS: HEMATOCRIT 23.6 % (42.0-52.0); HEMOGLOBIN 6.3 g/dL (13.5-18.0)
== END ==
LOC: LAB 10:40
PROVIDERS: Family Medicine
DX: K55.20 Angiodysplasia of colon without hemorrhage (principal); D50.9 Iron deficiency anemia, unspecified

== ENCOUNTER → 2018-05-26 | Outpatient (CLI) | payer MEDICARE, OTHER, MEDICAID ==
[2018-05-24 10:56] VITALS: BP 98/53
[~2018-05-26] MED LIST changes: +LASIX20 M1 PO
[2018-05-26 09:22] LABS: CALCIUM 8.4 mg/dL (8.4-10.2); HEMATOCRIT 31.8 % (42.0-52.0); MEAN PLATELET VOLUME 9.3 fl (7.4-10.4); RED BLOOD COUNT 3.24 M/mm3 (4.20-5.60); RED CELL DISTRIBUTION WIDTH 17.7 % (11.5-14.5); WHITE BLOOD COUNT 6.4 K/mm3 (4.8-10.8)
== END ==
LOC: LAB 08:30
PROVIDERS: Internal Medicine
DX: D50.9 Iron deficiency anemia, unspecified (principal)

== ENCOUNTER 2018-06-08 10:43 | Emergency (ER) | payer MEDICARE, OTHER, MEDICAID ==
[~2018-06-08] VITALS: Ht 152.4 cm; Wt 79.1 kg
[2018-06-08 11:42] LABS: ALBUMIN 3.6 g/dL (3.5-5.0); CALCIUM 8.7 mg/dL (8.4-10.2); CARBON DIOXIDE 34 mmol/L (22-30); GLUCOSE 92 mg/dL (75-110); POTASSIUM 4.2 mmol/L (3.6-5.0); SODIUM 139 mmol/L (137-145); TOTAL BILIRUBIN 0.3 mg/dL (0.2-1.3)
[2018-06-08 11:45] LABS: HEMATOCRIT 30.4 % (42.0-52.0); HEMOGLOBIN 8.7 g/dL (13.5-18.0); MEAN CELL VOLUME 96 fl (78-100); MEAN CORPUSCULAR HEMOGLOBIN 27 pg (27-31); MEAN PLATELET VOLUME 9.8 fl (7.4-10.4); PLATELET COUNT 331 K/mm3 (130-400); RED BLOOD COUNT 3.18 M/mm3 (4.20-5.60); RED CELL DISTRIBUTION WIDTH 15.5 % (11.5-14.5); WHITE BLOOD COUNT 6.1 K/mm3 (4.8-10.8)
[2018-06-08 12:02] LABS: ALT/SGPT < 3 U/L (21-72); TOTAL PROTEIN 6.3 g/dL (6.3-8.2)
[2018-06-08 12:15] LABS: AST-SGOT 26 U/L (17-59)
[2018-06-08 12:24] LABS: TROPONIN-I < 0.03 ng/mL (0.00-0.06)
[2018-06-08 12:25] LABS: LYMPHOCYTE 5 % (20-51); MEAN CORPUSCULAR HGB CONC 29 g/dL (33-37); MONOCYTE 8 % (3-10); NEUTROPHILS 86 % (42-75)
[2018-06-08 12:26] LABS: HYPOCHROMIA 2+
[2018-06-08 12:49] LABS: PH-URINE 5.5 (5.0 - 8.0); URINE APPEARANCE CLEAR; URINE BILIRUBIN NEGATIVE (NEGATIVE); URINE BLOOD NEGATIVE (NEGATIVE); URINE COLOR YELLOW; URINE GLUCOSE NEGATIVE (NEGATIVE); URINE KETONE NEGATIVE (NEGATIVE); URINE LEUKOCYTE ESTERASE NEGATIVE (NEGATIVE); URINE NITRATE NEGATIVE (NEGATIVE); URINE PROTEIN(semi-quant) NEGATIVE (NEGATIVE); URINE UROBILINOGEN NORMAL (NORMAL)
[2018-06-08] MEDS ORDERED: PROTONIX TR40 M1 PO (12:49)
[2018-06-08 12:50] LABS: URINE WBC 0-1 /hpf (0-3)
[2018-06-08] MEDS ORDERED: CODEINE-GUAIFE120 ML PO (12:50)
[2018-06-08 13:14] VITALS: BP 124/60
== END 2018-06-08 13:20 ==
LOC: ED 10:43
PROVIDERS: Family Medicine
DX: I95.1 Orthostatic hypotension (principal); I48.91 Unspecified atrial fibrillation; I25.10 Atherosclerotic heart disease of native coronary artery without angina pectoris; I11.0 Hypertensive heart disease with heart failure; I50.9 Heart failure, unspecified; D50.9 Iron deficiency anemia, unspecified; J30.9 Allergic rhinitis, unspecified; J44.9 Chronic obstructive pulmonary disease, unspecified; Z79.51 Long term (current) use of inhaled steroids; Z79.01 Long term (current) use of anticoagulants; Z87.891 Personal history of nicotine dependence

== ENCOUNTER 2018-06-12 14:20 | Outpatient (RCR) | payer MEDICARE, OTHER, MEDICAID ==
[2018-03-20 14:38] VITALS: BP 140/61
[2018-03-20 16:09] VITALS: BP 128/61
[2018-04-10 14:13] VITALS: BP 132/58
[2018-04-10 15:51] VITALS: BP 127/49
[2018-05-02 15:50] VITALS: BP 121/70
[2018-05-02 17:33] VITALS: BP 136/74
[2018-05-23 10:30] VITALS: BP 113/35
[2018-05-23 10:40] VITALS: BP 113/35
[2018-05-23 12:30] VITALS: BP 116/52
[~2018-06-12] VITALS: Ht 175.3 cm; Wt 77.3 kg
[2018-06-12 14:39] VITALS: BP 133/52
[2018-06-12 15:38] VITALS: BP 112/41
== END 2018-06-18 | disposition still patient (30) ==
LOC: AMSURD
DX: D50.9 Iron deficiency anemia, unspecified (principal); K55.20 Angiodysplasia of colon without hemorrhage
CPT/HCPCS: J2916; J7050

== ENCOUNTER → 2018-06-12 | Outpatient (CLI) | payer MEDICARE, OTHER, MEDICAID ==
[2018-06-08 13:14] VITALS: BP 124/60
[~2018-06-12] MED LIST changes: +CODEINE-GUAIFE120 ML PO; +PROTONIX TR40 M1 PO
[2018-06-12 15:11] LABS: HEMATOCRIT 27.4 % (42.0-52.0); MEAN PLATELET VOLUME 9.9 fl (7.4-10.4); RED BLOOD COUNT 2.83 M/mm3 (4.20-5.60); WHITE BLOOD COUNT 5.7 K/mm3 (4.8-10.8)
[2018-06-12 15:14] LABS: HEMOGLOBIN 7.8 g/dL (13.5-18.0)
== END ==
LOC: LAB 14:27
PROVIDERS: Family Medicine
DX: D50.9 Iron deficiency anemia, unspecified (principal); K55.20 Angiodysplasia of colon without hemorrhage
CPT/HCPCS: P9016

== ENCOUNTER → 2018-06-13 | Outpatient (CLI) | payer MEDICARE, OTHER, MEDICAID ==
[~2018-06-13] VITALS: Ht 175.3 cm; Wt 77.3 kg
[2018-06-13] VITALS (10 sets, daily range): BP systolic 112–135; BP diastolic 48–58
== END ==
LOC: AMSURD 10:39
DX: D64.9 Anemia, unspecified (principal)
CPT/HCPCS: J1940; J7050; P9016

== ENCOUNTER → 2018-06-14 | Outpatient (CLI) | payer MEDICARE, OTHER, MEDICAID ==
[2018-06-13 15:05] VITALS: BP 118/50
[2018-06-14 10:04] LABS: HEMATOCRIT 32.5 % (42.0-52.0); HEMOGLOBIN 9.5 g/dL (13.5-18.0); MEAN CELL VOLUME 93 fl (78-100); MEAN CORPUSCULAR HEMOGLOBIN 27 pg (27-31); MEAN PLATELET VOLUME 9.9 fl (7.4-10.4); PLATELET COUNT 315 K/mm3 (130-400); RED BLOOD COUNT 3.48 M/mm3 (4.20-5.60); RED CELL DISTRIBUTION WIDTH 17.4 % (11.5-14.5)
[2018-06-14 10:40] LABS: MEAN CORPUSCULAR HGB CONC 29 g/dL (33-37)
[2018-06-14 11:43] LABS: NEUTROPHILS 84 % (42-75)
[2018-06-14 11:44] LABS: LYMPHOCYTE 9 % (20-51); MONOCYTE 7 % (3-10); POLYCHROMASIA 1+
== END ==
LOC: LAB 09:35
PROVIDERS: Family Medicine
DX: D50.9 Iron deficiency anemia, unspecified (principal)

== ENCOUNTER → 2018-06-27 | Outpatient (CLI) | payer MEDICARE, OTHER, MEDICAID ==
[~2018-06-27] VITALS: Ht 175.3 cm; Wt 80.7 kg
[2018-06-27] VITALS (10 sets, daily range): BP systolic 107–134; BP diastolic 49–57
== END ==
LOC: AMSURD 09:54
DX: Z01.89 Encounter for other specified special examinations (principal)
CPT/HCPCS: J1940; J7050

== ENCOUNTER → 2018-06-29 | Outpatient (CLI) | payer MEDICARE, OTHER, MEDICAID ==
[2018-06-27 14:17] VITALS: BP 107/57
[2018-06-29 08:48] LABS: HEMATOCRIT 30.5 % (42.0-52.0); HEMOGLOBIN 9.1 g/dL (13.5-18.0); MEAN PLATELET VOLUME 9.8 fl (7.4-10.4); RED BLOOD COUNT 3.14 M/mm3 (4.20-5.60); RED CELL DISTRIBUTION WIDTH 18.1 % (11.5-14.5)
== END ==
LOC: LAB 08:00
PROVIDERS: Family Medicine
DX: D50.9 Iron deficiency anemia, unspecified (principal)

== ENCOUNTER → 2018-07-10 | Outpatient (CLI) | payer MEDICARE, OTHER, MEDICAID ==
[2018-06-27 14:17] VITALS: BP 107/57
[2018-07-10 14:27] LABS: HEMATOCRIT 30.3 % (42.0-52.0); HEMOGLOBIN 9.1 g/dL (13.5-18.0); MEAN PLATELET VOLUME 10.1 fl (7.4-10.4); RED BLOOD COUNT 3.11 M/mm3 (4.20-5.60); RED CELL DISTRIBUTION WIDTH 15.3 % (11.5-14.5); WHITE BLOOD COUNT 5.2 K/mm3 (4.8-10.8)
== END ==
LOC: LAB 10:21
PROVIDERS: Family Medicine
DX: D50.9 Iron deficiency anemia, unspecified (principal); D12.6 Benign neoplasm of colon, unspecified

== ENCOUNTER → 2018-07-24 | Outpatient (CLI) | payer MEDICARE, OTHER, MEDICAID ==
[2018-07-10 15:00] VITALS: BP 143/67
[2018-07-24 14:33] LABS: MEAN PLATELET VOLUME 9.5 fl (7.4-10.4); RED BLOOD COUNT 2.55 M/mm3 (4.20-5.60); RED CELL DISTRIBUTION WIDTH 14.9 % (11.5-14.5); WHITE BLOOD COUNT 5.2 K/mm3 (4.8-10.8)
== END ==
LOC: LAB 14:12
PROVIDERS: Family Medicine
DX: D50.9 Iron deficiency anemia, unspecified (principal); K55.20 Angiodysplasia of colon without hemorrhage

== ENCOUNTER → 2018-07-31 | Outpatient (CLI) | payer MEDICARE, OTHER, MEDICAID ==
[2018-07-25 13:06] VITALS: BP 128/61
[2018-07-31 11:17] LABS: HEMATOCRIT 31.3 % (42.0-52.0); HEMOGLOBIN 9.3 g/dL (13.5-18.0); MEAN PLATELET VOLUME 9.9 fl (7.4-10.4); RED BLOOD COUNT 3.22 M/mm3 (4.20-5.60); RED CELL DISTRIBUTION WIDTH 15.7 % (11.5-14.5); WHITE BLOOD COUNT 5.8 K/mm3 (4.8-10.8)
== END ==
LOC: LAB 09:41
PROVIDERS: Family Medicine
DX: D50.0 Iron deficiency anemia secondary to blood loss (chronic) (principal)

== ENCOUNTER → 2018-08-06 | Outpatient (CLI) | payer MEDICARE, OTHER, MEDICAID ==
[2018-07-31 11:35] VITALS: BP 121/55
== END ==
LOC: RAD 10:32
DX: J43.9 Emphysema, unspecified (principal); J84.10 Pulmonary fibrosis, unspecified

== ENCOUNTER → 2018-08-07 | Outpatient (CLI) | payer MEDICARE, OTHER, MEDICAID ==
[2018-07-31 11:35] VITALS: BP 121/55
[2018-08-07 14:31] LABS: HEMATOCRIT 31.5 % (42.0-52.0); HEMOGLOBIN 9.2 g/dL (13.5-18.0); MEAN PLATELET VOLUME 9.5 fl (7.4-10.4); RED BLOOD COUNT 3.37 M/mm3 (4.20-5.60); WHITE BLOOD COUNT 5.7 K/mm3 (4.8-10.8)
== END ==
LOC: LAB 13:59
PROVIDERS: Family Medicine
DX: D50.9 Iron deficiency anemia, unspecified (principal)

== ENCOUNTER → 2018-08-24 | Outpatient (CLI) | payer MEDICARE, OTHER, MEDICAID ==
[2018-08-14 12:03] VITALS: BP 136/63
[2018-08-24 13:43] LABS: HEMATOCRIT 27.5 % (42.0-52.0); MEAN PLATELET VOLUME 10.5 fl (7.4-10.4); RED BLOOD COUNT 2.78 M/mm3 (4.20-5.60); RED CELL DISTRIBUTION WIDTH 17.2 % (11.5-14.5); WHITE BLOOD COUNT 4.8 K/mm3 (4.8-10.8)
[2018-08-24 14:17] LABS: HEMOGLOBIN 7.9 g/dL (13.5-18.0)
== END ==
LOC: LAB 10:59
PROVIDERS: Family Medicine
DX: Z01.89 Encounter for other specified special examinations (principal)

== ENCOUNTER → 2018-08-28 | Outpatient (CLI) | payer MEDICARE, OTHER, MEDICAID ==
[2018-08-24 12:01] VITALS: BP 126/48
[2018-08-28 14:33] LABS: HEMATOCRIT 29.2 % (42.0-52.0); HEMOGLOBIN 8.2 g/dL (13.5-18.0); MEAN PLATELET VOLUME 9.9 fl (7.4-10.4); RED BLOOD COUNT 2.89 M/mm3 (4.20-5.60); RED CELL DISTRIBUTION WIDTH 18.7 % (11.5-14.5); WHITE BLOOD COUNT 5.4 K/mm3 (4.8-10.8)
== END ==
LOC: AMSURD 14:01
PROVIDERS: Family Medicine
DX: D50.9 Iron deficiency anemia, unspecified (principal)

== ENCOUNTER → 2018-09-04 | Outpatient (CLI) | payer MEDICARE, OTHER, MEDICAID ==
[2018-08-28 15:36] VITALS: BP 134/79
[2018-09-04 14:51] LABS: HEMATOCRIT 27.8 % (42.0-52.0); MEAN CELL VOLUME 102 fl (78-100); MEAN CORPUSCULAR HEMOGLOBIN 29 pg (27-31); MEAN PLATELET VOLUME 9.9 fl (7.4-10.4); PLATELET COUNT 207 K/mm3 (130-400); RED BLOOD COUNT 2.72 M/mm3 (4.20-5.60); RED CELL DISTRIBUTION WIDTH 16.7 % (11.5-14.5)
[2018-09-04 15:22] LABS: HEMOGLOBIN 7.9 g/dL (13.5-18.0); MEAN CORPUSCULAR HGB CONC 28 g/dL (33-37)
[2018-09-04 15:28] LABS: LYMPHOCYTE 7 % (20-51); MONOCYTE 7 % (3-10); NEUTROPHILS 83 % (42-75)
== END ==
LOC: LAB 13:53
PROVIDERS: Family Medicine
DX: D50.9 Iron deficiency anemia, unspecified (principal)